=== PATIENT | female | born 1965 | race Caucasian/White ===

== ENCOUNTER 2016-09-09 22:56 | Emergency (ER) | payer OTHER ==
[2016-09-09 23:49] LABS: % IMMATURE GRANULYOCYTES 0.2 % (0.0-1.1); ABSOLUTE IMMATURE GRANULOCYTES 0.01 10^3/uL (0.00-0.10); ADD DIFF? NO; ADD MORPH? NO; ADD SCAN? NO; ATYPICAL LYMPHOCYTE FLAG 10 (0-99); FRAGMENT RBC FLAG 0 (0-99); HEMATOCRIT 45.5 % (38.0-47.0); HEMOGLOBIN 15.3 g/dL (12.6-16.3); LEFT SHIFT FLG 0 (0-99); LIPEMIA HEMOLYSIS FLAG 80 (0-99); MEAN CELL HEMOGLOBIN 29.8 pg (27.9-34.1); MEAN CELL HEMOGLOBIN CONCENTR. 33.6 g/dL (32.4-36.7); MEAN CELL VOLUME 88.5 fL (81.5-99.8); MEAN PLATELET VOLUME 10.1 fL (8.7-11.7); PLATELET CLUMPS FLAG 0 (0-99); PLATELET COUNT 227 10^3/uL (150-400); RED BLOOD CELL COUNT 5.14 10^6/uL (4.18-5.33); RED CELL DISTRIBUTION WIDTH 13.3 % (11.5-15.2)
[2016-09-10 00:02] LABS: ANION GAP 11 mEq/L (8-16); CALCIUM 9.7 mg/dL (8.5-10.4); CARBON DIOXIDE 22 mEq/l (22-31); CHLORIDE 98 mEq/L (97-110); CREATININE 0.7 mg/dL (0.6-1.0); GLOMERULAR FILTRATION RATE > 60; GLUCOSE 94 mg/dL (70-100); POTASSIUM 4.2 mEq/L (3.5-5.2); SODIUM 131 mEq/L (134-144)
[2016-09-10 00:12] LABS: TROPONIN I < 0.012 ng/mL (0-0.034)
--- NOTE | 2016-09-10 00:26 | EDPHY ---
H & P Stated Complaint: HTN today; denies BP, [place], vision changes and confusion Time Seen by Provider: 09/10/16 00:05 HPI/ROS: HPI The patient presents with elevated blood pressures over the last 2 days. She checks her blood pressure at home periodically. She says last month that was normal, over the last 2 days she has been getting elevated readings, as high as 205/140. She says she is having some mild chest tightness with this which is episodic, occurs at rest, is present in her left chest, does not radiate, is not associated with any shortness of breath, nausea or vomiting, diaphoresis. She is an avid runner and was able to run without any chest pain or difficulty over the last few days. She says she has white coat hypertension and has had elevated blood readings before but usually the improve on their own. She had an echo performed about 7 or 8 years ago and she was told she had an enlarged heart, however she attributes this to her marathon running.. REVIEW OF SYSTEMS Constitutional: No fever, no chills. Eyes: No discharge. ENT: No sore throat. Cardiovascular: + chest pain, no palpitations. Respiratory: No cough, no shortness of breath. Gastrointestinal: No abdominal pain, no vomiting. Genitourinary: No hematuria. Musculoskeletal: No back pain. Skin: No rashes. Neurological: No headache. PMHx: Healthy Soc Hx: No drug use PHYSICAL General Appearance: Alert, no distress Eyes: Pupils equal and round no pallor or injection ENT, Mouth: Mucous membranes moist Respiratory: There are no retractions, lungs are clear to auscultation Cardiovascular: Regular rate and rhythm Gastrointestinal: Abdomen is soft and non-tender, no masses, bowel sounds normal Neurological: A&O, moves all extremities Skin: Warm and dry, no rashes Musculoskeletal: Neck is supple non tender Extremities: symmetrical, full range of motion Psychiatric: Patient is oriented X 3, there is no agitation Source: Patient - Personal History LMP (Females 10-55): Post Menopausal Current Tetanus/Diphtheria Vaccine: Yes Current Tetanus Diphtheria and Acellular Pertussis (TDAP): Yes Tetanus Vaccine Date: < 10 YEARS - Medical/Surgical History Hx Asthma: No Hx Chronic Respiratory Disease: No Hx Diabetes: No Hx Cardiac Disease: No Hx Renal Disease: No Hx Cirrhosis: No Hx Alcoholism: No Hx HIV/AIDS: No Hx Splenectomy or Spleen Trauma: No Other PMH: BILIARY DYKINESIA, back surgery, wisdom teeth extraction - Social History Smoking Status: Never smoked Constitutional: Initial Vital Signs Temperature (C) 36.5 C 09/09/16 23:04 Heart Rate 71 09/09/16 23:04 Respiratory Rate 16 09/09/16 23:04 Blood Pressure 187/124 H 09/09/16 23:04 O2 Sat (%) 98 09/09/16 23:04 O2 Delivery Mode Room Air Allergies/Adverse Reactions: lidocaine Allergy (Intermediate, Verified 03/11/16 15:48) irregular rapid pulse epinephrine [From EpiPen] Allergy (Verified 09/09/16 23:04) General anesthesia Allergy (Severe, Uncoded 03/11/16 15:48) extreme bradycardia Home Medications: Medication Instructions Recorded NO HOME MEDS 07/14/09 Medical Decision Making - Diagnostics EKG Interpretation: EKG: Complete interpretation has been separately recorded in the [facility] archive. Summary impression: LVH present, no ischemic changes Imaging: Chest x-ray two views is unremarkable, no cardiomegaly, interpreted by me, radiology interpretation is pending. ED Course/Re-evaluation: The patient's labs and studies were all unremarkable including her troponin, EKG , chest x-ray. I feel ACS or aortic dissection is unlikely. Repeat blood pressures here without any intervention normalized over top I am. It is unclear if the patient truly has hypertension verses several elevated blood pressure readings. I have counseled her on checking her blood pressure once daily in the morning when she is feeling relaxed and monitoring the trend of her blood pressures. She is to follow up with her doctor at [place] if she is persistently hypertensive. However, given that her blood pressure has improved so much here, I do not believe we need to initiate antihypertensive medication. Differential Diagnosis: This is a 50-year-old female with no significant past medical history who presents with elevated blood pressure over the last several days. This is associated with very mild chest tightness which is intermittent. Differential diagnosis includes new onset hypertension, ACS, less likely aortic dissection. - Data Points Laboratory Results: Laboratory Results 09/09/16 23:27 09/09/16 23:27 09/09/16 09/09/16 09/09/16 23:27 23:27 23:27 WBC 5.00 10^3/uL 10^3/uL (3.80-9.50) RBC 5.14 10^6/uL 10^6/uL (4.18-5.33) Hgb 15.3 g/dL g/dL (12.6-16.3) Hct 45.5 % % (38.0-47.0) MCV 88.5 fL fL (81.5-99.8) MCH 29.8 pg pg (27.9-34.1) MCHC 33.6 g/dL g/dL (32.4-36.7) RDW 13.3 % % (11.5-15.2) Plt Count 227 10^3/uL 10^3/uL (150-400) MPV 10.1 fL fL (8.7-11.7) Neut % (Auto) 46.4 % % (39.3-74.2) Lymph % (Auto) 43.6 % % (15.0-45.0) Bond % (Auto) 7.4 % % (4.5-13.0) Eos % (Auto) 1.4 % % (0.6-7.6) Baso % (Auto) 1.0 % % (0.3-1.7) Nucleat RBC Rel Count 0.0 % % (0.0-0.2) Absolute Neuts (auto) 2.32 10^3/uL 10^3/uL (1.70-6.50) Absolute Lymphs (auto) 2.18 10^3/uL 10^3/uL (1.00-3.00) Absolute Monos (auto) 0.37 10^3/uL 10^3/uL (0.30-0.80) Absolute Eos (auto) 0.07 10^3/uL 10^3/uL (0.03-0.40) Absolute Basos (auto) 0.05 10^3/uL 10^3/uL (0.02-0.10) Absolute Nucleated RBC 0.00 10^3/uL 10^3/uL (0-0.01) Immature Gran % 0.2 % % (0.0-1.1) Immature Gran # 0.01 10^3/uL 10^3/uL (0.00-0.10) Sodium 131 mEq/L L mEq/L (134-144) Potassium 4.2 mEq/L mEq/L (3.5-5.2) Chloride 98 mEq/L mEq/L (97-110) Carbon Dioxide 22 mEq/l mEq/l (22-31) Anion Gap 11 mEq/L mEq/L (8-16) BUN 11 mg/dL mg/dL (7-23) Creatinine 0.7 mg/dL mg/dL (0.6-1.0) Estimated GFR > 60 Glucose 94 mg/dL mg/dL (70-100) Calcium 9.7 mg/dL mg/dL (8.5-10.4) Troponin I < 0.012 ng/mL ng/mL (0-0.034) TSH 5.420 uIU/mL H uIU/mL (0.465-4.680) Departure - Departure Disposition: Home, Routine, Self-Care Clinical Impression: Chest pain, Elevated blood pressure reading Condition: Good Instructions: How to Take a Blood Pressure (ED) Additional Instructions: Please check your blood pressure once a day 1st thing in the morning and record your reading. If you notice that your blood pressures greater than 120/80 for 2 weeks or more, you should follow up with your primary care doctor. Please return to the emergency room if your worse in any way. Referrals: JESÚS BURKS [Primary Care Provider] - As per Instructions
[2016-09-10 01:23] VITALS: BP 131/96; PULSE 62; RESP 16; TEMP 97.5; O2SAT 95
--- NOTE | 2016-09-10 10:14 | CPEKG ---
Heart Rate: 57 RR Interval: 1053 P-R Interval: 164 QRSD Interval: 82 QT Interval: 412 QTC Interval: 401 P Woolrich: 58 QRS Woolrich: 62 T Wave Woolrich: 33 EKG Severity - ABNORMAL ECG - EKG Impression: SINUS RHYTHM EKG Impression: PROBABLE LEFT VENTRICULAR HYPERTROPHY Electronically Signed By: Jimy Metz 11-Sep-2016 10:53:45
== END 2016-09-10 01:23 | disposition home or self-care (01) ==
DX: R07.89 Other chest pain (principal); R03.0 Elevated blood-pressure reading, without diagnosis of hypertension

== ENCOUNTER 2017-07-29 14:15 | Emergency (ER) | payer OTHER ==
--- NOTE | 2017-07-29 14:32 | EDPHY ---
HPI/HX/ROS/PE/MDM Narrative: CHIEF COMPLAINT: Cough, vomiting, head pain HISTORY OF PRESENT ILLNESS: The patient is a 51 y/o female with a history of biliary dyskinesia complaining of a cough, vomiting, and head pain for 7 days. She has had a sore throat, body aches, nasal congestion, a subjective fever and a cough for 7 days. Today she had a coughing fit that caused vomiting at 13:15, 1.5 hours ago. During the coughing fit she developed an immediate headache starting in the occipital region and radiating to her temples. Her cough is associated with clear sputum. No chills, chest pain, shortness of breath, palpitations, diarrhea, nausea, urinary complaints, lightheadedness. REVIEW OF SYSTEMS: Aside from elements discussed in the HPI, a comprehensive 10-point review of systems was reviewed and is negative. PAST MEDICAL HISTORY: Biliary dyskinesia, back surgery SOCIAL HISTORY: , lives in [place], works for [employer]. Her children are going to [employer], which has had outbreak of pertussis. VITAL SIGNS: Reviewed by me GENERAL: Well-developed, well-nourished, resting comfortably in no respiratory distress except frequent cough. HEENT: Atraumatic. Tenderness to palpation at occipital condyles. Eyes: No icterus, no injection. EOMI. Mouth: moist mucous membranes. Palatal petechiae due to coughing. No erythema or lesions. Neck: supple with no adenopathy. No midline tenderness to palpation. Tenderness to palpation on bilateral paraspinal muscles. LUNGS: Persistent cough. Clear to auscultation bilaterally, no wheezes, rhonchi or rales. CARDIAC: Regular rate and rhythm, no rubs, murmurs or gallops. ABDOMEN: Soft, nontender, nondistended, bowel sounds normal. BACK: No CVA tenderness. EXTREMITIES: No trauma. No edema. Range of motion is normal throughout. NEURO: Alert and oriented, Motor strength 5/5 throughout, sensation intact throughout. Normal gait. CN 2-12 intact. SKIN: Warm and dry, no rash. PSYCHIATRIC: Normal mentation, no agitation. Portions of this note were transcribed by a medical billing clerk. I personally performed a history, physical exam, medical decision making, and confirmed accuracy of information the transcribed note. ED Course: The patient is a 51 y/o female presenting with a persistent cough and neck/head pain due to a coughing fit. She has been experiencing flu like symptoms for 7 days, but then developed an immediate headache after a coughing fit. On exam she has a tenderness to palpation at base of skull and palatal petechiae due to coughing. Her neurological exam is normal. Patient is declining pain medication at this time. Head CT and flu swab ordered. 1519: Spoke with radiologist; patient has a negative head CT. Chest x-ray ordered. Patient presenting within 2 hours of her headache onset. Do no feel that further evaluation is required to evaluate for SAH given timing of CT scan which is negative. Headache is resolving without meds. 1600: Patient is negative for influenza. 600mg PO Motrin and 1 tab Vanderbilt administered. 1615: Reviewed patient's chest x-ray. There is a possible bronchitis. 1620: Reassessed patient and discussed imaging and laboratory findings. She had a good amount of relief from the DuoNeb, second DuoNeb administered. I have prescribed her a ProAir inhaler, Azithromycin, and Tessalon Pearls for her cough and probable bronchitis. Return precautions provided; patient is comfortable with this plan. MDM: After history was obtained, and the physical exam performed, a differential for headache was considered including, but not limited to, subarachnoid hemorrhage, migraine headache, tension headache and infectious causes such as meningitis, influenza, encephalitis. - Data Points Imaging Results: CT head: Impression: 1. No acute intracranial findings. 2. Equivocal left maxillary sinusitis. 3. Additional findings as above. Findings discussed with Senia Carr M.D., on July 29, 2017 at 1519. E:NW/amm Dictated By: Shabbir Witt MD Imaging: Discussed imaging studies w/ coremaker experimental Radiologist, I viewed and interpreted images myself Medications Given: Discontinued Medications Hydrocodone Bitart/Acetaminophen (Vanderbilt 5/325) 1 tab PO EDNOW ONE Stop: 07/29/17 15:59 Last Admin: 07/29/17 16:30 Dose: 1 tab Albuterol (Proventil Neb) 3 ml IH EDNOW ONE Stop: 07/29/17 15:12 Last Admin: 07/29/17 15:19 Dose: 3 ml Albuterol (Proventil Neb) 3 ml IH EDNOW ONE Stop: 07/29/17 16:24 Last Admin: 07/29/17 16:33 Dose: 3 ml Ibuprofen (Motrin) 600 mg PO EDNOW ONE Stop: 07/29/17 15:59 Last Admin: 07/29/17 16:30 Dose: 600 mg General Time Seen by Provider: 07/29/17 14:30 Initial Vital Signs: Initial Vital Signs Temperature (C) 36.7 C 07/29/17 14:20 Heart Rate 70 07/29/17 14:20 Respiratory Rate 16 07/29/17 14:20 Blood Pressure 174/107 H 07/29/17 14:20 O2 Sat (%) 98 07/29/17 14:20 O2 Delivery Mode Room Air Allergies/Adverse Reactions: lidocaine Allergy (Intermediate, Verified 03/11/16 15:48) irregular rapid pulse epinephrine [From EpiPen] Allergy (Verified 09/09/16 23:04) General anesthesia Allergy (Severe, Uncoded 03/11/16 15:48) extreme bradycardia Home Medications: Medication Instructions Recorded NO HOME MEDS 07/14/09 AZITHROMYCIN [Z-PACK] 250 - 500 mg PO DAILY #6 tab 07/29/17 Albuterol Hfa Anes Only [Proair 2 puffs IH QID #1 mdi 07/29/17 Hfa Icu (*)] Benzonatate [Tessalon Pearles (RX)] 100 mg PO TID PRN #20 cap 07/29/17 Departure - Departure Disposition: Home, Routine, Self-Care Clinical Impression: Cough, Bronchitis Headache Qualifiers: Headache type: unspecified Headache chronicity pattern: acute headache Intractability: not intractable Qualified Code(s): R51 - Headache Condition: Good Instructions: Acute Bronchitis (ED), Acute Headache (ED), Acute Cough (ED) Additional Instructions: Use the ProAir inhaler as instructed. Take Azithromycin as prescribed. Make sure to finish the entire prescription even if your symptoms improve. Take Tessalon Pearls as instructed. Follow up with your PCP in the next week for unimproved symptoms. Return to the ED if you experience chest pain, shortness of breath, extremity weakness or numbness, fever or other worsening of your symptoms. Referrals: GRISEL BELL [Primary Care Provider] - As per Instructions Prescriptions: Albuterol Hfa Anes Only [Proair Hfa Icu (*)] 2 puffs IH QID #1 mdi AZITHROMYCIN [Z-PACK] 250 - 500 mg PO DAILY #6 tab Benzonatate [Tessalon Pearles (RX)] 100 mg PO TID PRN #20 cap PRN Reason: Cough Report Scribed for: Senia Carr Report Scribed by: Vidya Verdugo Date of Report: 07/29/17 Time of Report: 14:30
[2017-07-29] MEDS ORDERED: ALBUTEROL 3 ML DEYVIAL IH ONE ×2 (15:11→16:23)
[2017-07-29] MEDS ORDERED: HYDROCODONE/APAP 5/325 TAB PO ONE (15:58)
[2017-07-29] MEDS ORDERED: IBUPROFEN 600 MG TAB PO ONE (15:58)
[2017-07-29 16:54] VITALS: O2SAT 94
[2017-07-29 16:56] VITALS: BP 160/102; PULSE 75; RESP 18; TEMP 98.4
== END 2017-07-29 16:56 | disposition home or self-care (01) ==
DX: J20.9 Acute bronchitis, unspecified (principal); R51 Headache
CPT/HCPCS: J7613